=== PATIENT | female | born 1965 | race Caucasian/White ===

== ENCOUNTER 2021-12-21 06:44 | Day surgery (SDC) | payer OTHER ==
[2021-12-21] MEDS ORDERED: XYLOCAINE-MPF 1% 5ML SDV IJ ONE (06:45)
[2021-12-21] MEDS ORDERED: Lactated Ringers 1,000 ML IV ONE (08:31)
[2021-12-21] MEDS ORDERED: DIPRIVAN 200 MG/20 ML IV ONE (08:37)
--- NOTE | 2021-12-22 18:29 | XRAY ---
12 seconds of fluoroscopy was used in surgery for a bilateral L4-S1 MBB.
--- NOTE | 2021-12-23 19:59 | XRAY ---
Indication: Bilateral L4-S1 MBB. Intraoperative fluoroscopy provided for 12 seconds. Single digital spot image submitted for interpretation demonstrates posterior needle tips projecting over the expected right and left L4-S1 nerve roots. Correlate with intraoperative findings/report.
== END 2021-12-21 09:00 | disposition home or self-care (01) ==
LOC: SDC-PAIN 06:44
PROVIDERS: ATTEND Psychiatry & Neurology Pain Medicine
DX: M47.816 Spondylosis without myelopathy or radiculopathy, lumbar region (principal); Z79.899 Other long term (current) drug therapy
CPT/HCPCS: 64493; 64494; 72020; 77002; 82947; J2704

== ENCOUNTER 2022-05-10 06:52 | Day surgery (SDC) | payer OTHER ==
[2022-05-10] MEDS ORDERED: Sodium Chloride 0.9(Preservative Free) 10 ML IJ ONE (06:53)
[2022-05-10] MEDS ORDERED: Depo-Medrol 40 MG/ML IM ONE (06:53)
[2022-05-10] MEDS ORDERED: DIPRIVAN 200 MG/20 ML IV ONE (08:51)
--- NOTE | 2022-05-10 10:28 | XRAY ---
Indication: Left L4-S1 transforaminal SIDDHARTHA. Intraoperative fluoroscopy provided for 43 seconds. 4 digital spot image submitted for interpretation demonstrates posterior needle tips projecting over the expected left L4 and L5 nerve roots. Small amount of contrast injected for needle tip placement. Correlate with intraoperative findings/report.
--- NOTE | 2022-05-10 10:59 | XRAY ---
43 seconds fluoroscopy time used in surgery for left L4-S1 transforaminal SIDDHARTHA.
[2022-05-10] MEDS ORDERED: Lactated Ringers 1,000 ML IV ONE (11:49)
== END 2022-05-10 09:20 | disposition home or self-care (01) ==
LOC: SDC-PAIN 06:52
PROVIDERS: ATTEND Psychiatry & Neurology Pain Medicine
DX: M54.16 Radiculopathy, lumbar region (principal); E11.9 Type 2 diabetes mellitus without complications; Z79.899 Other long term (current) drug therapy
CPT/HCPCS: 64483; 64484; 72100; 77003; 82947; J1030; J2704; Q9966